=== PATIENT | male | born 1985 | race Caucasian/White ===

== ENCOUNTER 2023-06-15 16:04 | Outpatient (CLI) | payer OTHER, SELFPAY | END 2023-06-15 16:05 | disposition home or self-care (01) | LOC: NFLDREF 16:06 | PROVIDERS: PCP Family Medicine; Visit Provider Family Medicine | DX: R53.83 Other fatigue (principal); G47.10 Hypersomnia, unspecified | CPT/HCPCS: 80061; 82947; 84443 ==

== ENCOUNTER 2023-06-28 19:42 | Outpatient (CLI) | payer OTHER, SELFPAY ==
--- NOTE | 2023-07-07 11:40 | W.PM.SLEEP ---
Sleep Study Details Details Interpreting Provider: Silvana Date of Sleep Study: 06/28/23 Sleep Study Details: STUDY TYPE:? Home unattended ? BMI:? ORDERING PROVIDER:? 29.6 INDICATION:? Concerns about sleep apnea ? SLEEP SUMMARY:? 413.5 minutes monitored RESPIRATORY SUMMARY:? AHI 34.2, supine 36.6, left lateral 24.7, right lateral 46.1 Low oxygen 85 2.9% of study oxygen less than 90% Snoring 1.4% PERIODIC LIMB MOVEMENTS OF SLEEP:? Not recorded during home study CARDIAC:? Ranged 61-111, mean 75.5 IMPRESSION:? Severe obstructive sleep apnea RECOMMENDATION: AutoSet CPAP pressure 4-18.
== END 2023-06-28 19:43 | disposition home or self-care (01) ==
LOC: SLEEP 19:42
PROVIDERS: PCP Family Medicine; Visit Provider Family Medicine
DX: G47.33 Obstructive sleep apnea (adult) (pediatric) (principal)
CPT/HCPCS: 95806

== ENCOUNTER 2024-03-04 07:34 | Outpatient (CLI) | payer OTHER, SELFPAY | END 2024-03-04 07:35 | disposition home or self-care (01) | LOC: NFLDREF 03-08 16:13 | PROVIDERS: PCP Family Medicine; Referring Provider Family Medicine; Visit Provider Family Medicine | DX: Z13.1 Encounter for screening for diabetes mellitus (principal); Z13.6 Encounter for screening for cardiovascular disorders | CPT/HCPCS: 80061; 82947 ==

== ENCOUNTER 2025-03-30 07:55 | Outpatient (CLI) | payer OTHER, SELFPAY | END 2025-03-30 07:56 | disposition home or self-care (01) | LOC: NFLDREF 04-04 03:18 | PROVIDERS: PCP Family Medicine; Referring Provider Family Medicine; Visit Provider Family Medicine | DX: E78.6 Lipoprotein deficiency (principal) | CPT/HCPCS: 80061 ==